=== PATIENT | female | born 1935 | race African-American/Black ===

== ENCOUNTER 2017-10-09 14:12 | Emergency (ER) | payer MEDICARE ==
[~2017-10-09] VITALS: Ht 175.3 cm; Wt 70.0 kg
[2017-10-09 15:15] VITALS: BP 201/90; PULSE 78; RESP 20; TEMP 98.7; O2SAT 99
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
[2017-10-09 15:27] LABS: AUTOMATED NEUTROPHIL # 3.6 TH/MM3 (1.8-7.7); BASOPHIL % 0.7 % (0.0-2.0); EOSINOPHIL # 0.1 TH/MM3 (0-0.4); EOSINOPHIL % 2.7 % (0.0-4.0); HEMATOCRIT 36.9 % (35.0-46.0); HEMO FLAGS DIFF FINAL; LYMPH % 24.5 % (9.0-44.0); LYMPHOCYTE # 1.3 TH/MM3 (1.0-4.8); MEAN CELL VOLUME 89.6 FL (80.0-100.0); MEAN CORPUSCULAR HEMOGLOBIN 29.7 PG (27.0-34.0); MEAN CORPUSCULAR HGB CONC 33.1 % (32.0-36.0); MONO % 5.8 % (0.0-8.0); NEUT % 66.3 % (16.0-70.0); PLATELET COUNT 236 TH/MM3 (150-450); RED BLOOD COUNT 4.12 MIL/MM3 (4.00-5.30); RED CELL DISTRIBUTION WIDTH 13.4 % (11.6-17.2); WHITE BLOOD COUNT 5.4 TH/MM3 (4.0-11.0)
--- NOTE | 2017-10-09 15:37 | RADRPT ---
EXAM DATE/TIME: 10/09/2017 15:20 [facility] COMPARISON: No previous studies available for comparison. INDICATIONS : Confused RADIATION DOSE: 33.58 CTDIvol (mGy) MEDICAL HISTORY : Dementia. SURGICAL HISTORY : None. ENCOUNTER: Initial ACUITY: 1 day PAIN SCALE: 0/10 LOCATION: cranial TECHNIQUE: Multiple contiguous axial images were obtained of the head. Using automated exposure control and adj ustment of the mA and/or kV according to patient size, radiation dose was kept as low as reasonably a chievable to obtain optimal diagnostic quality images. DICOM format image data is available electro nically for review and comparison. FINDINGS: CEREBRUM: The ventricles are normal for age. No evidence of midline shift, mass lesion, hemorrhage or acute in farction. No extra-axial fluid collections are seen. POSTERIOR FOSSA: The cerebellum and brainstem are intact. The 4th ventricle is midline. The cerebellopontine angle i s unremarkable. EXTRACRANIAL: The visualized portion of the orbits is intact. SKULL: The calvaria is intact. No evidence of skull fracture. CONCLUSION: No acute disease. Elbert Edmonds Jr., MD on October 09, 2017 at 15:34 Board Certified Radiologist. This report was verified electronically.
[2017-10-09 15:39] LABS: ALT (GPT) 20 U/L (10-53); ANION GAP 7 MEQ/L (5-15); AST (GOT) 24 U/L (15-37); BICARBONATE 26.3 MEQ/L (21.0-32.0); BLOOD UREA NITROGEN 13 MG/DL (7-18); CHLORIDE 107 MEQ/L (98-107); GLOMERULAR FILTRATION RATE 80 ML/MIN (>89); POTASSIUM 4.3 MEQ/L (3.5-5.1); SODIUM (NA) 140 MEQ/L (136-145)
[2017-10-09 15:41] LABS: ALKALINE PHOSPHATASE 95 U/L (45-117); TOTAL BILIRUBIN ADULT 0.4 MG/DL (0.2-1.0)
[2017-10-09] MEDS ORDERED: cloNIDine HCL 0.1 MG TAB PO ONE (16:00)
[2017-10-09 16:24] LABS: BLOOD, URINE NEG (NEG); GLUCOSE,URINE NEG (NEG); KETONE, URINE NEG (NEG); MUCUS URINE FEW /lpf (OCC); NITRITE,URINE NEG (NEG); SQUAMOUS EPITHELIAL CELL URINE <1 /hpf (0-5); URINE COLOR YELLOW (YELLW/STRAW)
[2017-10-09 16:25] LABS: COMMENT (UR) CATH-CULT NOT IND; CULTURE IF INDICATED CATH CULTURE NOT IND
[2017-10-09 16:35] VITALS: BP 170/85; PULSE 71; RESP 20; O2SAT 98
[2017-10-09 17:39] VITALS: BP 149/76; PULSE 87; RESP 20; O2SAT 98
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
== END 2017-10-09 19:34 | disposition home or self-care (01) ==
LOC: NEPD 14:12
DX: F03.91 Unspecified dementia, unspecified severity, with behavioral disturbance (principal)
CPT/HCPCS: 70450; 80053; 80307; 81001; 85025; 99284

== ENCOUNTER 2017-12-10 00:23 | Inpatient (IN) | payer MEDICARE, OTHER ==
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
[2017-12-10 01:16] VITALS: BP 135/72; PULSE 68; RESP 17; TEMP 98.3; O2SAT 99
[2017-12-10 01:30] LABS: AUTOMATED NEUTROPHIL # 2.6 TH/MM3 (1.8-7.7); BASOPHIL # 0.1 TH/MM3 (0-0.2); BASOPHIL % 1.3 % (0.0-2.0); EOSINOPHIL # 0.2 TH/MM3 (0-0.4); EOSINOPHIL % 4.6 % (0.0-4.0); HEMATOCRIT 34.8 % (35.0-46.0); HEMOGLOBIN 11.7 GM/DL (11.6-15.3); LYMPH % 29.2 % (9.0-44.0); LYMPHOCYTE # 1.4 TH/MM3 (1.0-4.8); MEAN CELL VOLUME 88.7 FL (80.0-100.0); MEAN CORPUSCULAR HEMOGLOBIN 29.9 PG (27.0-34.0); MEAN CORPUSCULAR HGB CONC 33.7 % (32.0-36.0); MEAN PLATELET VOLUME 6.9 FL (7.0-11.0); MONOCYTE # 0.4 TH/MM3 (0-0.9); NEUT % 56.9 % (16.0-70.0); PLATELET COUNT 221 TH/MM3 (150-450); RED BLOOD COUNT 3.92 MIL/MM3 (4.00-5.30); RED CELL DISTRIBUTION WIDTH 12.9 % (11.6-17.2); WHITE BLOOD COUNT 4.6 TH/MM3 (4.0-11.0)
[2017-12-10 01:51] LABS: ALBUMIN 3.8 GM/DL (3.4-5.0); AST (GOT) 23 U/L (15-37); BICARBONATE 25.5 MEQ/L (21.0-32.0); BLOOD UREA NITROGEN 21 MG/DL (7-18); CALCIUM 8.7 MG/DL (8.5-10.1); CHLORIDE 108 MEQ/L (98-107); CREATININE 1.27 MG/DL (0.50-1.00); GLOMERULAR FILTRATION RATE 49 ML/MIN (>89); GLUCOSE,RANDOM 100 MG/DL (74-106); SODIUM (NA) 141 MEQ/L (136-145)
[2017-12-10 02:02] LABS: ALKALINE PHOSPHATASE 97 U/L (45-117); ALT (GPT) 24 U/L (10-53); TOTAL BILIRUBIN ADULT 0.3 MG/DL (0.2-1.0)
[2017-12-10 04:00] VITALS: BP 136/72; PULSE 88; RESP 20; TEMP 98; O2SAT 98
[2017-12-10] MEDS ORDERED: LORazepam 0.5 MG TAB PO PRN (12:15)
[2017-12-10] MEDS ORDERED: LORazepam 2 MG/ML VIAL IM PRN (12:15)
[2017-12-10] MEDS ORDERED: MAGNESIUM HYDROXIDE SUSP 30 ML CUP PO PRN (12:15)
[2017-12-10] MEDS ORDERED: ALUMINUM/MAGNESIUM/SIMETH 30 ML CUP PO PRN (12:15)
[2017-12-10 12:22] VITALS: BP 133/64; PULSE 65; RESP 16; O2SAT 95
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
[2017-12-10 13:00] VITALS: BP 170/86; PULSE 72; RESP 18; TEMP 98.4
[2017-12-10] MEDS ORDERED: OLANZapine IM 10 MG VIAL IM STA ×2 (13:11→15:40)
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
[2017-12-11 06:59] VITALS: BP 154/79; PULSE 64; RESP 16; TEMP 97; O2SAT 98
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
--- NOTE | 2017-12-11 10:48 | EKG ---
Date Performed: 12/10/2017 Time Performed: 12:27:55 PTAGE: 82 years EKG: Sinus rhythm NORMAL ECG NO PREVIOUS TRACING DOCTOR: Leroy Watson Interpretating Date/Time 12/11/2017 10:47:10
[2017-12-11] MEDS ORDERED: OLANZapine IM 10 MG VIAL IM PRN (11:00)
--- NOTE | 2017-12-11 11:21 | EKG ---
Date Performed: 12/11/2017 Time Performed: 08:43:15 PTAGE: 82 years EKG: Sinus rhythm NORMAL ECG PREVIOUS TRACING : 12/10/2017 12.27 DOCTOR: Leroy Watson Interpretating Date/Time 12/11/2017 11:19:49
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
[2017-12-11 13:08] LABS: AUTOMATED NEUTROPHIL # 3.2 TH/MM3 (1.8-7.7); BASOPHIL % 0.7 % (0.0-2.0); EOSINOPHIL # 0.2 TH/MM3 (0-0.4); EOSINOPHIL % 4.5 % (0.0-4.0); HEMATOCRIT 39.2 % (35.0-46.0); HEMOGLOBIN 13.2 GM/DL (11.6-15.3); LYMPH % 25.1 % (9.0-44.0); LYMPHOCYTE # 1.3 TH/MM3 (1.0-4.8); MEAN CELL VOLUME 89.6 FL (80.0-100.0); MEAN CORPUSCULAR HEMOGLOBIN 30.3 PG (27.0-34.0); MEAN CORPUSCULAR HGB CONC 33.8 % (32.0-36.0); MEAN PLATELET VOLUME 7.3 FL (7.0-11.0); MONO % 7.1 % (0.0-8.0); MONOCYTE # 0.4 TH/MM3 (0-0.9); NEUT % 62.6 % (16.0-70.0); PLATELET COUNT 263 TH/MM3 (150-450); RED BLOOD COUNT 4.37 MIL/MM3 (4.00-5.30); RED CELL DISTRIBUTION WIDTH 13.4 % (11.6-17.2); WHITE BLOOD COUNT 5.1 TH/MM3 (4.0-11.0)
[2017-12-11 13:36] LABS: ALBUMIN 3.9 GM/DL (3.4-5.0); AST (GOT) 22 U/L (15-37); BICARBONATE 28.8 MEQ/L (21.0-32.0); BLOOD UREA NITROGEN 15 MG/DL (7-18); CALCIUM 8.8 MG/DL (8.5-10.1); CHLORIDE 109 MEQ/L (98-107); CHOLESTEROL 228 MG/DL (120-200); CREATININE 0.98 MG/DL (0.50-1.00); GLOMERULAR FILTRATION RATE 66 ML/MIN (>89); GLUCOSE,RANDOM 74 MG/DL (74-106); SODIUM (NA) 143 MEQ/L (136-145)
[2017-12-11 14:04] LABS: ALKALINE PHOSPHATASE 106 U/L (45-117); ALT (GPT) 24 U/L (10-53); CHOLESTEROL/ HDL RATIO 2.66 RATIO; HDL CHOLESTEROL 85.5 MG/DL (40.0-60.0); LDL CHOLESTEROL 121 MG/DL (0-99); TOTAL BILIRUBIN ADULT 0.2 MG/DL (0.2-1.0); TOTAL PROTEIN 8.4 GM/DL (6.4-8.2); TRIGLYCERIDES 106 MG/DL (42-150)
[2017-12-11 16:58] VITALS: BP 156/67; PULSE 66; RESP 18; TEMP 98.3; O2SAT 98
[2017-12-11 17:03] LABS: HEMOGLOBIN A1C 5.5 % (4.3-6.0)
[2017-12-11] MEDS: NYSTATIN SUSP 500,000 U/5 ML CUP SWISH-SWAL SCH ×2 (17:56→20:39)
[2017-12-11] MEDS: MELATONIN 5 MG TAB PO PRN (20:38)
[2017-12-11] MEDS ORDERED: OLANZapine ODT 5 MG TAB PO SCH (21:00)
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
[2017-12-12] MEDS ORDERED: OLANZapine 5 MG TAB PO ONE (00:30)
[2017-12-12] MEDS ORDERED: diphenhydrAMINE HCL 25 MG CAP PO ONE (00:30)
[2017-12-12 05:47] VITALS: BP 136/62; PULSE 64; RESP 18; TEMP 96.2; O2SAT 96
[2017-12-12] MEDS: NYSTATIN SUSP 500,000 U/5 ML CUP SWISH-SWAL SCH ×4 (08:08→20:12)
--- NOTE | 2017-12-12 09:59 | HHI.PYPN ---
Subjective Chief Complaint: dementia with behavioral disturbance Remarks Patient seen and examined with nurse. Chart reviewed. Case discussed with nursing staff. Patient noted to sleep nil overnight. She was wandering and confused. She reportedly saw her daughter outside the window earlier today. I note that she required Zyprexa and Benadryl PO overnight because of agitation. On my examination today, the patient is wandering around the unit. She is trying to open the doors of other patients' rooms. She remains quite confused and is oriented to person only. Thought process disorganized. She denies any visual or other hallucinations presently. No side effects from medications. No physical complaints. While on geropsychiatric unit rounding, I responded to disturbance involving patient. I find her in a peer's room, stripping linens off the bed. She is extremely agitated and remains confused. Attempts at verbal redirection are unsuccessful. I have ordered patient medicated with Haldol and Benadryl ETO. If effective, we might consider adding a Haldol p.r.n. for agitation. To consider transferring patient back to high acuity unit if she cannot tolerate 2500 milieu. Case d/w RN and hemodialysis charge nurse. Returned to check on patient following Haldol p.r.n.. She is now quite calm, and nurse reports rapid, positive response to Haldol. No evident side effects from this medication. Review of Systems ROS Limitations: Poor Historian Except as stated in HPI: all other systems reviewed are Neg Mental Status Examination Appearance: Disheveled Consciousness: Alert Orientation: Person Motor Activity: Normal gait, Other (no hand tremor, no dystonia, no dyskinesia , no other motor abnormalities noted) Speech: Other (rambling) Language: Perseveration Fund of Knowledge: Inadequate Attention and Concentration: Inadequate Memory: Impaired Mood: Anxious (mild) Affect: Blunt Thought Process & Associations: Disorganized Thought Content: Other (poverty of thought) Hallucination Type: None Delusion Type: None Suicidal Ideation: No Suicidal Plan: No Suicidal Intention: No Homicidal Ideation: No Homicidal Plan: No Homicidal Intention: No Insight: Poor Judgment: Poor Results Labs Test 12/11/17 12:00 12/11/17 12:10 12/11/17 14:08 12/11/17 14:10 White Blood Count 5.1 TH/MM3 Red Blood Count 4.37 MIL/MM3 Hemoglobin 13.2 GM/DL Hematocrit 39.2 % Mean Corpuscular Volume 89.6 FL Mean Corpuscular Hemoglobin 30.3 PG Mean Corpuscular Hemoglobin Concent 33.8 % Red Cell Distribution Width 13.4 % Platelet Count 263 TH/MM3 Mean Platelet Volume 7.3 FL Neutrophils (%) (Auto) 62.6 % Lymphocytes (%) (Auto) 25.1 % Monocytes (%) (Auto) 7.1 % Eosinophils (%) (Auto) 4.5 % Basophils (%) (Auto) 0.7 % Neutrophils # (Auto) 3.2 TH/MM3 Lymphocytes # (Auto) 1.3 TH/MM3 Monocytes # (Auto) 0.4 TH/MM3 Eosinophils # (Auto) 0.2 TH/MM3 Basophils # (Auto) 0.0 TH/MM3 CBC Comment DIFF FINAL Differential Comment Blood Urea Nitrogen 15 MG/DL Creatinine 0.98 MG/DL Random Glucose 74 MG/DL Total Protein 8.4 GM/DL Albumin 3.9 GM/DL Calcium Level 8.8 MG/DL Alkaline Phosphatase 106 U/L Aspartate Amino Transf (AST/SGOT) 22 U/L Alanine Aminotransferase (ALT/SGPT) 24 U/L Total Bilirubin 0.2 MG/DL Sodium Level 143 MEQ/L Potassium Level 4.4 MEQ/L Chloride Level 109 MEQ/L Carbon Dioxide Level 28.8 MEQ/L Anion Gap 5 MEQ/L Estimat Glomerular Filtration Rate 66 ML/MIN Hemoglobin A1c 5.5 % Triglycerides Level 106 MG/DL Cholesterol Level 228 MG/DL LDL Cholesterol 121 MG/DL HDL Cholesterol 85.5 MG/DL Cholesterol/HDL Ratio 2.66 RATIO Vitamin B12 Level 436 PG/ML 25-Hydroxy Vitamin D Total 12.3 ng/ML Thyroid Stimulating Hormone 3rd Gen 0.556 uIU/ML Erythrocyte Sedimentation Rate 35 mm/hr Ammonia 32 MCMOL/L Labs reviewed. Low vitamin D level noted. Mildly elevated ESR noted. ESTELA, HIV and RPR are still pending. Vitals/IOs Vital Signs Date Time Temp Pulse Resp B/P (MAP) Pulse Ox O2 Delivery O2 Flow Rate FiO2 12/12/17 05:47 96.2 64 18 136/62 (86) 96 12/10/17 12:22 Room Air Assessment & Plan Problem List: (1) Dementia ICD Codes: F03.90 - Unspecified dementia without behavioral disturbance Status: Acute Assessment & Plan -W-s-c-r-a-t-e- -Z-u-l-r-e-x-a- -t-o- -7-.-5- -m-g- -a-t- -l-n-s-t-i-m-e- -t-o- -t-i-n-g-e-t- -b-w-c-j-r-j-o-r-a-l- -l-s-s-o-x-e-b-a-n-c-e- -i-n- -t-h-e- -q-n-a-t-i-n-g- -o-f- -e-c-z-b-a-b-l-e- -m-y-k-e-n-t-i-a- -a-n-d- -t-o- -h-t-z-i-s-t- -w-i-t-h- -s-l-e-e-p-.- Neurology input noted and appreciated. I will check an updated Head CT to round out the dementia workup and follow-up outstanding laboratories. We will transfer the patient back to the geropsychiatric unit as her behavior presently seems more appropriate for that unit. Continue other medications and care as ordered. Update: Given positive response to Haldol p.r.n., discontinue Zyprexa and replace with scheduled Haldol 2mg PO BID with IM backup for refusal of PO Haldol or for severe agitation. Although I do see that neurology has possible DLB in the differential, patient seems to be tolerating the Haldol well, and it seems much more efficacious than the Zyprexa. I worry also about excessively sedating the patient on either Zyprexa or Seroquel at doses that may be required to control behaviors. I will add Benadryl p.r.n. at low dose in case patient should experience EPS. Justification for Cont. Inpt. Medication changes. Impairment in reality construction as a consequence of dementia. High risk for decompensation and less restrictive environment. Discharge Planning Pending stabilization Request HC Surrog/Guard Advoc?: Yes Problem Qualifiers (1) Dementia: Qualified Codes: F03.91 - Unspecified dementia with behavioral disturbance Kalpesh Benjamin MD Dec 12, 2017 09:59
[2017-12-12] MEDS ORDERED: HALOPERIDOL LACTATE 5 MG/ML AMP IM STA (12:52)
[2017-12-12] MEDS ORDERED: diphenhydrAMINE HCL 50 MG/ML VIAL IM ONE (13:00)
[2017-12-12] MEDS ORDERED: HALOPERIDOL LACTATE 5 MG/ML AMP IM PRN (14:15)
[2017-12-12] MEDS ORDERED: diphenhydrAMINE HCL 50 MG/ML VIAL IM PRN (14:15)
[2017-12-12 17:48] VITALS: BP 143/69; PULSE 74; RESP 18; TEMP 97.5; O2SAT 96
[2017-12-12] MEDS: HALOPERIDOL 2 MG TAB PO SCH (20:14)
[2017-12-12] MEDS ORDERED: OLANZapine 5 MG TAB PO SCH (21:00)
--- NOTE | 2017-12-12 21:27 | RADRPT ---
EXAM DATE/TIME: 12/12/2017 18:23 [facility] COMPARISON: CT BRAIN W/O CONTRAST, October 09, 2017, 15:20. INDICATIONS : Altered mental status RADIATION DOSE: 52.58 CTDIvol (mGy) MEDICAL HISTORY : Hypertension. SURGICAL HISTORY : None. ENCOUNTER: Initial ACUITY: 1 day PAIN SCALE: 0/10 LOCATION: cranial TECHNIQUE: Multiple contiguous axial images were obtained of the head. Using automated exposure control and adj ustment of the mA and/or kV according to patient size, radiation dose was kept as low as reasonably a chievable to obtain optimal diagnostic quality images. DICOM format image data is available electro nically for review and comparison. FINDINGS: CEREBRUM: The ventricles are normal for age. No evidence of midline shift, mass lesion, hemorrhage or acute in farction. No extra-axial fluid collections are seen. POSTERIOR FOSSA: The cerebellum and brainstem are intact. The 4th ventricle is midline. The cerebellopontine angle i s unremarkable. EXTRACRANIAL: The visualized portion of the orbits is intact. SKULL: The calvaria is intact. No evidence of skull fracture. CONCLUSION: No acute disease. Elbert Edmonds Jr., MD on December 12, 2017 at 21:22 Board Certified Radiologist. This report was verified electronically.
[2017-12-13 05:49] VITALS: BP 180/84; PULSE 85; RESP 16; TEMP 97.1; O2SAT 96
[2017-12-13 06:33] VITALS: BP 149/64; PULSE 100
[2017-12-13] MEDS: HALOPERIDOL 2 MG TAB PO SCH ×2 (07:59→20:42)
[2017-12-13] MEDS: NYSTATIN SUSP 500,000 U/5 ML CUP SWISH-SWAL SCH ×4 (08:00→20:42)
--- NOTE | 2017-12-13 12:02 | HHI.PYPN ---
Subjective Chief Complaint: dementia with behavioral disturbance Remarks Patient seen and examined with nurse and nursing students. Chart reviewed. Case discussed with nurse who reports patient remains intermittently agitated, pounding on windows and requires frequent redirection. Patient required p.r.n. dose of Haldol yesterday evening. Case discussed in treatment team. On my examination today, the patient recognizes me from our previous contacts. However, overall she remains quite confused and is oriented to person only. Thought process perhaps a little more organized today, although speech remains quite rambling. She is calm during the interview but remains quite easily agitated. No side effects from medications. No physical complaints. Received a message from patient's daughter, Radha Wadsworth [phone]. I have called her back. She reports that patient's ex- who helps care for patient had to be rushed to the hospital. There is some concern that he might be in extremis. Daughter wonders about having patient discharged into her care so that patient can see ex- in case he . I recommend against this course of action, given patient's ongoing behavioral disturbance, but I explain that I will discharge patient into their care if this is family's wish. However, I explain that weekend rounding physician will not be in a position to discharge patient and so realistic opportunities for patient's discharge are today or Saturday. Daughter says she has just arrived at hospital where ex- is and will assess the situation and get back to us. Review of Systems ROS Limitations: Poor Historian Except as stated in HPI: all other systems reviewed are Neg Mental Status Examination Appearance: Disheveled Consciousness: Alert Orientation: Person (person only) Motor Activity: Normal gait, Other (no hand tremor, no cogwheeling, no hypomimia, no other motor abnormalities noted) Speech: Other (remains rambling) Language: Perseveration Fund of Knowledge: Inadequate Attention and Concentration: Inadequate Memory: Impaired Mood: Other (calm, mildly dysphoric) Affect: Blunt Thought Process & Associations: Disorganized Thought Content: Other (poverty of thought) Hallucination Type: None Delusion Type: None Suicidal Ideation: No (no SI voiced) Homicidal Ideation: No (no HI voiced) Insight: Poor Judgment: Poor Results Labs Labs reviewed. ESTELA negative. Vitals/IOs Vital Signs Date Time Temp Pulse Resp B/P (MAP) Pulse Ox O2 Delivery O2 Flow Rate FiO2 12/13/17 06:33 100 149/64 (92) 12/13/17 05:49 97.1 16 96 12/10/17 12:22 Room Air Assessment & Plan Problem List: (1) Dementia ICD Codes: F03.90 - Unspecified dementia without behavioral disturbance Status: Acute Assessment & Plan Titrate Haldol to 3 mg twice daily to target behavioral disturbance in the setting of dementia. Additional Haldol remains available as needed. Continue to monitor on the inpatient unit. Continue other medications and care as ordered. Justification for Cont. Inpt. Med changes. Risk for decompensation in less restrictive environment. Discharge Planning Pending stabilization. Request HC Surrog/Guard Advoc?: Yes Problem Qualifiers (1) Dementia: Qualified Codes: F03.91 - Unspecified dementia with behavioral disturbance Kalpesh Benjamin MD Dec 13, 2017 12:02
[2017-12-13 15:57] LABS: ANA SCREEN NEG (NEG)
[2017-12-13 17:47] VITALS: BP 156/71; PULSE 74; RESP 18; TEMP 97.3; O2SAT 100
[2017-12-13] MEDS: diphenhydrAMINE HCL 25 MG CAP PO PRN (20:42)
[2017-12-14 06:00] VITALS: BP 171/88; PULSE 79; RESP 18; TEMP 98.1; O2SAT 98
[2017-12-14] MEDS: NYSTATIN SUSP 500,000 U/5 ML CUP SWISH-SWAL SCH ×4 (08:47→20:16)
[2017-12-14] MEDS: HALOPERIDOL 2 MG TAB PO SCH ×2 (08:47→20:15)
[2017-12-14 09:51] VITALS: BP 149/70; PULSE 69; RESP 18
--- NOTE | 2017-12-14 14:02 | HHI.PYPN ---
Subjective Chief Complaint: dementia with behavioral disturbance Remarks Patient was seen and case discussed with nursing. Patient is alert and oriented 1. She does not know where we are with the year. She is largely behaving well and has not had any aggression or outbursts. Behaviors at times bizarre taking other people's food. 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 Mental Status Examination Appearance: Disheveled Consciousness: Alert Orientation: Person (person only) Motor Activity: Normal gait, Other (no hand tremor, no cogwheeling, no hypomimia, no other motor abnormalities noted) Speech: Other (remains rambling) Language: Perseveration Fund of Knowledge: Inadequate Attention and Concentration: Inadequate Memory: Impaired Mood: Other (calm, mildly dysphoric) Affect: Blunt Thought Process & Associations: Disorganized Thought Content: Hallucinations Hallucination Type: Visual Delusion Type: None Suicidal Ideation: No (no SI voiced) Homicidal Ideation: No (no HI voiced) Insight: Poor Judgment: Poor Results Vitals/IOs Vital Signs Date Time Temp Pulse Resp B/P (MAP) Pulse Ox O2 Delivery O2 Flow Rate FiO2 12/14/17 09:51 69 18 149/70 (96) 12/14/17 06:00 98.1 98 12/10/17 12:22 Room Air Assessment & Plan Problem List: (1) Dementia ICD Codes: F03.90 - Unspecified dementia without behavioral disturbance Status: Acute Assessment & Plan Continue current treatment plan Justification for Cont. Inpt. Patient will decompensate in a less restrictive setting Request HC Surrog/Guard Advoc?: Yes Problem Qualifiers (1) Dementia: Qualified Codes: F03.91 - Unspecified dementia with behavioral disturbance Star Hunter DO Dec 14, 2017 14:02
[2017-12-14 18:11] VITALS: BP 168/71; PULSE 71; RESP 17; TEMP 97; O2SAT 97
[2017-12-14] MEDS: diphenhydrAMINE HCL 25 MG CAP PO PRN (20:15)
[2017-12-15 05:47] VITALS: BP 120/80; PULSE 80; RESP 17; TEMP 98; O2SAT 98
[2017-12-15] MEDS: HALOPERIDOL 2 MG TAB PO SCH ×2 (08:54→20:17)
[2017-12-15] MEDS: ACETAMINOPHEN 325 MG TAB PO PRN (08:54)
[2017-12-15] MEDS: NYSTATIN SUSP 500,000 U/5 ML CUP SWISH-SWAL SCH ×4 (08:54→20:17)
--- NOTE | 2017-12-15 14:32 | HHI.PYPN ---
Subjective Chief Complaint: dementia with behavioral disturbance Remarks Patient was seen and case discussed with nursing. Patient is alert and oriented 1. She has been on good behavior today. Has not had any agitation or aggression on the unit. Sleep is poor per nursing. Compliant with medications Mental Status Examination Appearance: Disheveled Consciousness: Alert Orientation: Person (person only) Motor Activity: Normal gait, Other (no hand tremor, no cogwheeling, no hypomimia, no other motor abnormalities noted) Speech: Other (remains rambling) Language: Perseveration Fund of Knowledge: Inadequate Attention and Concentration: Inadequate Memory: Impaired Mood: Other (calm, mildly dysphoric) Affect: Blunt Thought Process & Associations: Disorganized Thought Content: Hallucinations Hallucination Type: Visual Delusion Type: None Suicidal Ideation: No (no SI voiced) Homicidal Ideation: No (no HI voiced) Insight: Poor Judgment: Poor Results Labs Date/Time Source Procedure Growth Status 12/14/17 11:00 Urine Clean Catch Urine Culture - Final 10-50,000 CFU/ML MIXED GRAM POSITIVE ... Complete Vitals/IOs Vital Signs Date Time Temp Pulse Resp B/P (MAP) Pulse Ox O2 Delivery O2 Flow Rate FiO2 12/15/17 10:11 20 12/15/17 05:47 98.0 80 120/80 (93) 98 Assessment & Plan Problem List: (1) Dementia ICD Codes: F03.90 - Unspecified dementia without behavioral disturbance Status: Acute Assessment & Plan Continue current treatment plan Justification for Cont. Inpt. Patient would decompensate in a less restrictive setting Request HC Surrog/Guard Advoc?: Yes Problem Qualifiers (1) Dementia: Qualified Codes: F03.91 - Unspecified dementia with behavioral disturbance Star Hutner DO Dec 15, 2017 14:32
[2017-12-15 18:08] VITALS: BP 138/73; PULSE 73; RESP 17; TEMP 97.7; O2SAT 98
[2017-12-15] MEDS: diphenhydrAMINE HCL 25 MG CAP PO PRN (20:17)
[2017-12-15] MEDS: MELATONIN 5 MG TAB PO PRN (21:56)
[2017-12-16 06:30] VITALS: BP 154/73; PULSE 67; RESP 16; TEMP 97.1; O2SAT 98
[2017-12-16] MEDS: NYSTATIN SUSP 500,000 U/5 ML CUP SWISH-SWAL SCH ×4 (09:00→20:49)
[2017-12-16] MEDS: HALOPERIDOL 2 MG TAB PO SCH ×2 (09:00→20:50)
--- NOTE | 2017-12-16 12:01 | HHI.PYPN ---
Subjective Chief Complaint: dementia with behavioral disturbance Remarks Patient seen and examined with nurse. Chart reviewed. Case discussed with nursing staff who reports that the patient's sleep patterns remain somewhat disrupted. She slept 3 hours overnight. She is noted to be calm, no behavioral problem, and med compliant. On my examination today, the patient is oriented to person only. She gives the date as 89 and the location is [place]. She denies any SI, HI or AVH. Seems to be in fair spirits generally. No side effects from medications. No physical complaints. Review of Systems ROS Limitations: Poor Historian Except as stated in HPI: all other systems reviewed are Neg Mental Status Examination Appearance: Disheveled Consciousness: Alert Orientation: Person (again person only) Motor Activity: Other (no motor abnormalities noted) Speech: Other (somewhat rambling) Language: Other (inadequate) Fund of Knowledge: Inadequate Attention and Concentration: Inadequate Memory: Impaired Mood: Other (calm) Affect: Blunt Thought Process & Associations: Disorganized (in the setting of dementia) Thought Content: Other (poverty of thought) Hallucination Type: None Delusion Type: None Suicidal Ideation: No Homicidal Ideation: No Insight: Poor Judgment: Poor Results Labs Date/Time Source Procedure Growth Status 12/14/17 11:00 Urine Clean Catch Urine Culture - Final 10-50,000 CFU/ML MIXED GRAM POSITIVE ... Complete Labs reviewed. No new labs. Vitals/IOs Vital Signs Date Time Temp Pulse Resp B/P (MAP) Pulse Ox O2 Delivery O2 Flow Rate FiO2 12/16/17 06:30 97.1 67 16 154/73 (100) 98 Assessment & Plan Problem List: (1) Dementia ICD Codes: F03.90 - Unspecified dementia without behavioral disturbance Status: Acute Assessment & Plan Continue Haldol as ordered. Patient has melatonin available for sleep. Sleep cycle disruptions are common in dementia, and I do not think that the benefit of adding a hypnotic outweighs the risk in the absence of disturbed behavior associated with the sleeplessness. Continue to monitor on the inpatient unit. Continue other medications and care as ordered. Justification for Cont. Inpt. Risk for decompensation in less restrictive environment Discharge Planning Case discussed with counselor. Counselor has reached out the patient's daughter. Ex-'s illness places discharge plan in doubt as he had been caring for the patient prior to admission. Patient may require placement. Request HC Surrog/Guard Advoc?: Yes Problem Qualifiers (1) Dementia: Qualified Codes: F03.91 - Unspecified dementia with behavioral disturbance Kalpesh Benjamin MD Dec 16, 2017 12:01
[2017-12-16 17:04] VITALS: BP 149/63; PULSE 72; RESP 16; TEMP 98.4; O2SAT 99
[2017-12-16 17:30] VITALS: BP 149/63; PULSE 72; RESP 16; TEMP 98.4; O2SAT 99
[2017-12-16] MEDS: ACETAMINOPHEN 325 MG TAB PO PRN (20:50)
[2017-12-16] MEDS: MELATONIN 5 MG TAB PO PRN (20:50)
[2017-12-17 06:04] VITALS: BP 158/69; PULSE 66; RESP 16; TEMP 96.4; O2SAT 100
[2017-12-17] MEDS: CHOLECALCIFEROL (VIT D3) 1000 UNIT TAB PO SCH (08:11)
[2017-12-17] MEDS: HALOPERIDOL 2 MG TAB PO SCH ×2 (08:11→21:27)
[2017-12-17] MEDS: NYSTATIN SUSP 500,000 U/5 ML CUP SWISH-SWAL SCH ×4 (08:11→21:27)
--- NOTE | 2017-12-17 10:26 | PD.TTN ---
Patient Problems 1. Discharge planning 2. Medication compliance 3. Knowledge deficit 4. Lack of coping skills Progress Toward Goals Provider Present: Dr. Amol Benjamin Provider Input: 12/13/17 doctor spoke with family and they would loke her medications adjusted and then to be discharged back home 12/17/17 now in need of placement overall stable Psychiatric Counselors Present: Nedra Barajas LCSW Psych Therapist Input: 12/13/17 patient is very confused and suspicious and has been in need to remain on 2700 12/17 family wants her placed and have no longer caregiver for her in the home and are not sure if she needs longterm vs [facility] Group Spec/RT/OT/ALBERT Present: CARMEN Foley Group Spec/RT/OT/ALBERT Input: 12/13 unable to tolerate gruops 12/17 unable to tolerate group activities Nedra Barajas LCSW Dec 17, 2017 10:26
--- NOTE | 2017-12-17 12:40 | HHI.PYPN ---
Subjective Chief Complaint: dementia with behavioral disturbance Remarks Patient seen and examined with nurse. Chart reviewed. Case discussed with nursing staff. Patient reportedly slept very well overnight and has been no behavioral problem on the unit. Case discussed in treatment team. Per counselor, family is reportedly exploring placement in [facility]. On my examination today, the patient is calm and cooperative. She remains quite confused and thought process is disorganized in the setting of her dementia. No SI or HI voiced. No side effects from medications. No physical complaints. Review of Systems ROS Limitations: Poor Historian Except as stated in HPI: all other systems reviewed are Neg Mental Status Examination Appearance: Disheveled Consciousness: Alert Orientation: Person Motor Activity: Other (no motoric abnormalities appreciated) Speech: Other (remains rambling) Language: Other (inadequate) Fund of Knowledge: Inadequate Attention and Concentration: Inadequate Memory: Impaired Mood: Other (remains calm) Affect: Blunt Thought Process & Associations: Disorganized (in the setting of dementia) Thought Content: Other (poverty of thought) Hallucination Type: None Delusion Type: None Suicidal Ideation: No Homicidal Ideation: No Insight: Poor Judgment: Poor Results Labs Date/Time Source Procedure Growth Status 12/14/17 11:00 Urine Clean Catch Urine Culture - Final 10-50,000 CFU/ML MIXED GRAM POSITIVE ... Complete Labs reviewed. Vitals/IOs Vital Signs Date Time Temp Pulse Resp B/P (MAP) Pulse Ox O2 Delivery O2 Flow Rate FiO2 12/17/17 06:04 96.4 66 16 158/69 (98) 100 Assessment & Plan Problem List: (1) Dementia ICD Codes: F03.90 - Unspecified dementia without behavioral disturbance Status: Acute Assessment & Plan Continue Haldol as ordered. Continue other medications and care as ordered. Justification for Cont. Inpt. High risk for decompensation in less restrictive environment. Discharge Planning Possible placement. Case discussed with counselor. Request HC Surrog/Guard Advoc?: Yes Problem Qualifiers (1) Dementia: Qualified Codes: F03.91 - Unspecified dementia with behavioral disturbance Kalpesh Benjamin MD Dec 17, 2017 12:40
[2017-12-17 18:24] VITALS: BP 134/62; PULSE 79; RESP 17; TEMP 96.5; O2SAT 96
[2017-12-17] MEDS: MELATONIN 5 MG TAB PO PRN (21:27)
[2017-12-18 06:04] VITALS: BP 131/59; PULSE 71; RESP 16; TEMP 97.8; O2SAT 100
[2017-12-18] MEDS: CHOLECALCIFEROL (VIT D3) 1000 UNIT TAB PO SCH (09:00)
--- NOTE | 2017-12-18 09:07 | HHI.PYPN ---
Subjective Chief Complaint: dementia with behavioral disturbance Remarks Patient seen and examined with nurse. Chart reviewed. Case discussed with nursing staff. Patient has been no behavioral problem on the unit and has been trying to help out with small tasks. Case discussed with counselor. On my examination today, patient is calm and cooperative. She tells me, "I just started working here yesterday." She believes that she has a job on the unit. I have expressed appreciation for her assistance but have emphasized that she is under no obligation perform any tasks on the unit. Remains confused and disoriented. Does say to myself and nurse, "I think I know you from somewhere. " No side effects from medications. No physical complaints. Review of Systems ROS Limitations: Poor Historian Except as stated in HPI: all other systems reviewed are Neg Mental Status Examination Appearance: Disheveled Consciousness: Alert Orientation: Person (person only) Motor Activity: Other (no abnormal motor movements noted) Speech: Other (rambling) Language: Other (inadequate) Fund of Knowledge: Inadequate Attention and Concentration: Inadequate Memory: Impaired Mood: Other (calm, generally euthymic) Affect: Blunt Thought Process & Associations: Disorganized (somewhat more organized today) Thought Content: Other (poverty of thought) Hallucination Type: None Delusion Type: None Suicidal Ideation: No Homicidal Ideation: No Insight: Poor Judgment: Poor Results Labs Date/Time Source Procedure Growth Status 12/14/17 11:00 Urine Clean Catch Urine Culture - Final 10-50,000 CFU/ML MIXED GRAM POSITIVE ... Complete Labs reviewed. No new labs. Vitals/IOs Vital Signs Date Time Temp Pulse Resp B/P (MAP) Pulse Ox O2 Delivery O2 Flow Rate FiO2 12/18/17 06:04 97.8 71 16 131/59 (83) 100 Assessment & Plan Problem List: (1) Dementia ICD Codes: F03.90 - Unspecified dementia without behavioral disturbance Status: Acute Assessment & Plan Continue Haldol as ordered. Continue to monitor on the inpatient unit. Continue other medications and care as ordered. Justification for Cont. Inpt. High risk for decompensation in less restrictive environment Discharge Planning Counselor is working on placement. Request HC Surrog/Guard Advoc?: Yes Problem Qualifiers (1) Dementia: Qualified Codes: F03.91 - Unspecified dementia with behavioral disturbance Kalpesh Benjamin MD Dec 18, 2017 09:07
[2017-12-18] MEDS: HALOPERIDOL 2 MG TAB PO SCH ×2 (09:25→20:24)
[2017-12-18] MEDS: NYSTATIN SUSP 500,000 U/5 ML CUP SWISH-SWAL SCH ×2 (09:25→13:00)
[2017-12-18 14:07] VITALS: BP 123/59; PULSE 95; RESP 18; TEMP 100; O2SAT 95
[2017-12-18 17:11] VITALS: BP 132/67; PULSE 82; RESP 18; TEMP 96.9; O2SAT 100
[2017-12-19 05:32] VITALS: BP 177/78; PULSE 74; RESP 16; TEMP 97.7; O2SAT 100
[2017-12-19] MEDS: HALOPERIDOL 2 MG TAB PO SCH ×2 (08:13→20:17)
[2017-12-19] MEDS: CHOLECALCIFEROL (VIT D3) 1000 UNIT TAB PO SCH (08:13)
[2017-12-19] MEDS ORDERED: PILL SPLITTER OTHER PRN (09:00)
[2017-12-19] MEDS: amLODIPine BESYLATE 5 MG TAB PO SCH (10:16)
--- NOTE | 2017-12-19 12:10 | HHI.PYPN ---
Subjective Chief Complaint: dementia with behavioral disturbance Remarks Patient seen and examined with nurse. Chart reviewed. Case discussed with nursing staff who reports patient remains confused and disorganized. On my examination today, the patient is calm but remains quite confused. She says that she is feeling "a lot better." No side effects from medications. No physical complaints. Charting indicates that the patient is eating and sleeping well. Review of Systems ROS Limitations: Poor Historian Except as stated in HPI: all other systems reviewed are Neg Mental Status Examination Appearance: Other (in hospital attire. Fair grooming.) Consciousness: Alert Orientation: Person (person only) Motor Activity: Other (no motor abnormalities noted) Speech: Other (rambling) Language: Other (inadequate) Fund of Knowledge: Inadequate Attention and Concentration: Inadequate Memory: Impaired Mood: Good Affect: Euthymic Thought Process & Associations: Circumstantial (in setting of dementia) Thought Content: Other (poverty of thought) Hallucination Type: None Delusion Type: None Suicidal Ideation: No Homicidal Ideation: No Insight: Poor Judgment: Poor Results Labs Date/Time Source Procedure Growth Status 12/14/17 11:00 Urine Clean Catch Urine Culture - Final 10-50,000 CFU/ML MIXED GRAM POSITIVE ... Complete Labs reviewed. Vitals/IOs Vital Signs Date Time Temp Pulse Resp B/P (MAP) Pulse Ox O2 Delivery O2 Flow Rate FiO2 12/19/17 05:32 97.7 74 16 177/78 (111) 100 Assessment & Plan Problem List: (1) Dementia ICD Codes: F03.90 - Unspecified dementia without behavioral disturbance Status: Acute Assessment & Plan Blood pressure somewhat high today. I will add low-dose amlodipine as had been recommended by the hospitalist. Continue Haldol as ordered. Continue to monitor on the inpatient unit. Continue other medications and care as ordered. Patient's case was presented to the [place] act court and was placed in continuance for 4 weeks with daughter to act as healthcare surrogate. Justification for Cont. Inpt. High risk for decompensation in less restrictive environment. Discharge Planning Possible placement. Request HC Surrog/Guard Advoc?: Yes Problem Qualifiers (1) Dementia: Qualified Codes: F03.91 - Unspecified dementia with behavioral disturbance Kalpesh Benjamin MD Dec 19, 2017 12:10
[2017-12-19 17:15] VITALS: BP 151/76; PULSE 97; RESP 18; TEMP 98.3; O2SAT 100
[2017-12-20] MEDS: amLODIPine BESYLATE 5 MG TAB PO SCH (08:02)
[2017-12-20] MEDS: CHOLECALCIFEROL (VIT D3) 1000 UNIT TAB PO SCH (08:02)
[2017-12-20] MEDS: HALOPERIDOL 2 MG TAB PO SCH (08:02)
[2017-12-20] MEDS ORDERED: MELA5 PO (13:27)
[2017-12-20] MEDS ORDERED: CHOL1000 PO (13:27)
[2017-12-20] MEDS ORDERED: AMLO5 PO (13:27)
[2017-12-20] MEDS ORDERED: HALO2TAB PO (13:27)
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
--- NOTE | 2017-12-20 13:29 | PD.TTN ---
Patient Problems 1. Discharge planning 2. Medication compliance 3. Knowledge deficit 4. Lack of coping skills Progress Toward Goals Provider Present: Dr. Amol Benjamin Provider Input: 12/13/17 doctor spoke with family and they would loke her medications adjusted and then to be discharged back home 12/17/17 now in need of placement overall stable 12/20 discharge today anticipated if medically cleared Psychiatric Counselors Present: Nedra Barajas LCSW Psych Therapist Input: 12/13/17 patient is very confused and suspicious and has been in need to remain on 2700 12/17 family wants her placed and have no longer caregiver for her in the home and are not sure if she needs care home vs [facility] 12/20 patient can go to [facility] but daugther needs to sign paperwork- will call and discuss today Group Spec/RT/OT/ALBERT Present: Kianna Jones, CARMEN Group Spec/RT/OT/ALBERT Input: 12/13 unable to tolerate gruops 12/17 unable to tolerate group activities 12/20 attends Nedra Ann LCSW Dec 20, 2017 13:29
== END 2017-12-20 15:00 | DRG 884 ==
LOC: NEPD 00:23 → NEDA 12:13 → H250 12:55 → H270 15:24 → H250 12-12 10:15 → H270 12-12 14:15
PROVIDERS: ADMIT Psychiatry & Neurology Psychiatry; ATTEND Psychiatry & Neurology Psychiatry
DX: F03.91 Unspecified dementia, unspecified severity, with behavioral disturbance (principal); B37.0 Candidal stomatitis; F22 Delusional disorders; I10 Essential (primary) hypertension; F43.25 Adjustment disorder with mixed disturbance of emotions and conduct; Z91.83 Wandering in diseases classified elsewhere; Z96.653 Presence of artificial knee joint, bilateral
CPT/HCPCS: 70450; 80053; 80061; 80307; 82140; 82306; 82607; 83036; 84443; 85025; 85652; 86038; 86592; 86703; 87086; 93005; 99285; J1200; J1630